=== PATIENT | male | born 1935 | race Caucasian/White ===

== ENCOUNTER → 2017-09-04 | Outpatient (CLI) | payer OTHER ==
[~2017-09-04] MED LIST: ACETAMINOPHEN325 M1 PO; ASPIR 8181 MG PO; ATORVASTATIN CA40 MG PO; B COMPLEX-VITA1 EACH PO; BISACODYL SUPP10 MG RECTAL; CALCITONIN SALMON NASAL; CALCITONIN SPRAY; CALCIUM 500 +1 EAC5 PO; CALCIUM CARBON500 M3 PO; CALTRATE 600 +1 EACH PO; CALTRATE-600 W1 EACH PO; CELEXA 20 MG TA20 M1 PO; CELEXA20 MG PO; COLACE100 MG PO; FEOSOL BIFERA 228 MG PO; FISH OIL 1,0001 EAC5 PO; FLEXERIL PO; FLOMAX0.4 MG PO; FOSAMAX 70 MG T70 M1 PO; GLUCOSAMINE CH PO; LISINOPRIL10 MG PO; LISINOPRIL20 MG PO; LUPRON DEPOT IM; LUPRON DEPOT11.25 MG IM; LUPRON DEPOT22.5 MG IM; LUPRON DEPOT45 MG SUBQ; MAG GLYCINATE100 MG PO; MAGNESIUM OXID400 MG PO; MAGNESIUM100 MG PO; MAGOX 400400 MG PO; MAXARON FORTE1 EACH PO; MECLIZINE HCL12.5 MG PO; MILK OF MA2400 MG/10 PO; MIRALAX17 GM PO; MULTIVITAMINS1 EAC7 PO; NAMENDA 5 MG TAB5 M1 PO; NORCO 5-325 TA1 EACH PO; NORVASC10 MG PO; NYSTATIN 1100000 U/M SW&SWALLOW; PEG3350510 GM PO; PERCOCET 7.5-31 EACH PO; PERCOCET PO; PRINIVIL20 MG PO; TAMSULOSIN HCL0.4 M1 PO; TAMSULOSIN HCL0.4 MG PO; TOPROL XL25 MG PO; ULTRAM 50MG TAB50 MG PO; VISTARIL 25 MG25 M1 PO; VITAMIN B-1100 M1 PO; VITAMIN B-12500 MCG PO
== END ==
LOC: ULTRA 11:32
DX: G45.9 Transient cerebral ischemic attack, unspecified (principal); H53.8 Other visual disturbances

== ENCOUNTER → 2017-09-16 | Outpatient (CLI) | payer OTHER | LOC: CAT 09:58 | DX: G31.9 Degenerative disease of nervous system, unspecified (principal); M41.82 Other forms of scoliosis, cervical region; M47.892 Other spondylosis, cervical region; H51.9 Unspecified disorder of binocular movement; R42 Dizziness and giddiness ==

== ENCOUNTER → 2018-05-12 | Outpatient (CLI) | payer OTHER | LOC: NUC 06:34 | DX: Z13.820 Encounter for screening for osteoporosis (principal); M81.0 Age-related osteoporosis without current pathological fracture ==

== ENCOUNTER → 2018-11-03 | Outpatient (CLI) | payer OTHER | LOC: RAD 11:41 | DX: J84.10 Pulmonary fibrosis, unspecified (principal) ==

== ENCOUNTER → 2019-05-06 | Outpatient (CLI) | payer OTHER | LOC: ULTRA 09:13 | DX: N28.1 Cyst of kidney, acquired (principal); R14.0 Abdominal distension (gaseous); R63.4 Abnormal weight loss ==

== ENCOUNTER → 2020-06-08 | Outpatient (CLI) | payer OTHER | LOC: SJCVC 10:47 | PROVIDERS: ATTEND Internal Medicine Cardiovascular Disease | DX: I45.10 Unspecified right bundle-branch block (principal); R94.31 Abnormal electrocardiogram [ECG] [EKG]; I25.10 Atherosclerotic heart disease of native coronary artery without angina pectoris; I13.0 Hypertensive heart and chronic kidney disease with heart failure and stage 1 through stage 4 chronic kidney disease, or unspecified chronic kidney disease; N18.9 Chronic kidney disease, unspecified; I50.9 Heart failure, unspecified; R60.9 Edema, unspecified; M19.90 Unspecified osteoarthritis, unspecified site; E78.00 Pure hypercholesterolemia, unspecified; Z82.49 Family history of ischemic heart disease and other diseases of the circulatory system; Z79.899 Other long term (current) drug therapy ==

== ENCOUNTER → 2020-10-04 | Outpatient (CLI) | payer OTHER | LOC: SJCVCIMAG 09:28 | PROVIDERS: ATTEND Internal Medicine Cardiovascular Disease | DX: I08.3 Combined rheumatic disorders of mitral, aortic and tricuspid valves (principal); R94.31 Abnormal electrocardiogram [ECG] [EKG]; I25.10 Atherosclerotic heart disease of native coronary artery without angina pectoris; I13.0 Hypertensive heart and chronic kidney disease with heart failure and stage 1 through stage 4 chronic kidney disease, or unspecified chronic kidney disease; I50.9 Heart failure, unspecified; N18.30 Chronic kidney disease, stage 3 unspecified; Z79.899 Other long term (current) drug therapy ==

== ENCOUNTER 2020-11-16 11:52 | Emergency (ER) | payer OTHER ==
[~2020-11-16] VITALS: Ht 165.1 cm; Wt 79.4 kg
[2020-11-16 13:38] LABS: URINE BILIRUBIN NEGATIVE (Negative); URINE BLOOD NEGATIVE (Negative); URINE CLARITY CLEAR; URINE COLOR YELLOW; URINE GLUCOSE-RANDOM* NEGATIVE (Negative); URINE KETONES TRACE (Negative); URINE LEUKOCYTES-REFLEX NEGATIVE (Negative); URINE NITRITE-REFLEX NEGATIVE (Negative); URINE PROTEIN (DIPSTICK) NEGATIVE (Negative); URINE UROBILINOGEN 0.2 E.U./dl (0.2-1.0)
[2020-11-16 13:43] LABS: ABSOLUTE NEUTROPHILS 3.7 thou/uL (1.4-8.2); BASOPHILS 0.4 % (0.0-2.0); EOSINOPHILS 0.4 % (0.0-3.0); HEMATOCRIT 39.4 % (42.0-52.0); HEMOGLOBIN 13.1 gm/dL (14.0-18.0); LYMPHOCYTES 18.8 % (24.0-44.0); MCH 32.7 pg (26.0-34.0); MCHC 33.2 g/dL (28.0-37.0); MCV 98.4 fL (80.0-100.0); MONOCYTES 7.4 % (1.0-8.0); PLATELET COUNT 147 thou/uL (150-400); RDW 13.6 % (10.5-14.5); WBC 5.1 thou/uL (4.0-11.0)
[2020-11-16 14:09] LABS: ALBUMIN 3.8 g/dL (3.4-5.0); CREATININE 1.6 mg/dL (0.7-1.3); POTASSIUM 4.4 mmol/L (3.5-5.1); TOTAL BILIRUBIN 0.6 mg/dL (0.2-1.0); TOTAL PROTEIN 6.6 g/dL (6.4-8.2)
[2020-11-16 14:11] LABS: CALCIUM 10.1 mg/dL (8.5-10.1)
--- NOTE | 2020-11-16 14:23 | EKG ---
[place] [address] [address] [facility] [place] [address] ELECTROCARDIOGRAM REPORT Name: KEVIN RAMIREZ [facility] [id number] Admission: 11/16/20 Attend Phys: Discharge: Date of : 31 Report #: [id number] [facility] ED Test Date: 2020-11-16 Test Time: 13:10:52 Pat Name: KEVIN RAMIREZ Department: Room: Gender: M Heating Unit Installer: christos : 1935 Requested By: Danny Santos Order Number: [id number] MD: Emeka Harrison Measurements Intervals [place] Rate: 55 P: 23 ID: 174 QRS: 73 QRSD: 111 T: 26 QT: 432 QTc: 414 Interpretive Statements NSR RSR' in V1 or V2, right VCD or RVH Compared to ECG 01/10/2017 09:55:50 Right ventricular hypertrophy now present RSR' in V1 or V2 now present Electronically Signed On 11-16-2020 14:23:47 CARE INFORMATION ASSOCIATE by Emeka Harrison [email or web address] <ELECTRONICALLY SIGNED> By: Emeka Harrison MD, [facility] 11/16/20 1423 1310 1310 Emeka Harrison MD, FACC /EPI
[2020-11-16] MEDS ORDERED: ZOFRAN ODT4 MG PO (14:25)
[2020-11-16] MEDS ORDERED: ZESTRIL5 MG PO (15:24)
[2020-11-16 15:26] VITALS: BP 164/77
== END 2020-11-16 15:27 ==
LOC: ER 11:52
PROVIDERS: Emergency Medicine
DX: R11.2 Nausea with vomiting, unspecified (principal); R42 Dizziness and giddiness; Z86.2 Personal history of diseases of the blood and blood-forming organs and certain disorders involving the immune mechanism; Z79.899 Other long term (current) drug therapy; Z79.82 Long term (current) use of aspirin; Z88.8 Allergy status to other drugs, medicaments and biological substances; Z91.048 Other nonmedicinal substance allergy status

== ENCOUNTER → 2021-01-18 | Outpatient (CLI) | payer OTHER ==
[~2021-01-18] MED LIST changes: +ZESTRIL5 MG PO; +ZOFRAN ODT4 MG PO
== END ==
LOC: HYPER 13:10
PROVIDERS: ATTEND Emergency Medicine
DX: L89.152 Pressure ulcer of sacral region, stage 2 (principal); R21 Rash and other nonspecific skin eruption; L30.9 Dermatitis, unspecified; R26.89 Other abnormalities of gait and mobility; R53.1 Weakness; H91.93 Unspecified hearing loss, bilateral; G30.1 Alzheimer's disease with late onset; I13.0 Hypertensive heart and chronic kidney disease with heart failure and stage 1 through stage 4 chronic kidney disease, or unspecified chronic kidney disease; I50.9 Heart failure, unspecified; N18.9 Chronic kidney disease, unspecified; I25.10 Atherosclerotic heart disease of native coronary artery without angina pectoris; E78.00 Pure hypercholesterolemia, unspecified; M19.90 Unspecified osteoarthritis, unspecified site; M48.00 Spinal stenosis, site unspecified; F41.9 Anxiety disorder, unspecified; F02.80 Dementia in other diseases classified elsewhere, unspecified severity, without behavioral disturbance, psychotic disturbance, mood disturbance, and anxiety; F32.9 Major depressive disorder, single episode, unspecified; Z85.46 Personal history of malignant neoplasm of prostate; Z96.659 Presence of unspecified artificial knee joint; Z98.41 Cataract extraction status, right eye

== ENCOUNTER 2021-07-30 19:26 | Observation (INO) | payer OTHER ==
[~2021-07-30] VITALS: Ht 152.4 cm; Wt 76.2 kg
[2021-07-30 19:38] VITALS: BP 178/70
[2021-07-30 20:24] LABS: ABSOLUTE NEUTROPHILS 6.4 thou/uL (1.4-8.2); BASOPHILS 0.3 % (0.0-2.0); EOSINOPHILS 0.2 % (0.0-3.0); HEMATOCRIT 35.4 % (42.0-52.0); HEMOGLOBIN 11.8 gm/dL (14.0-18.0); LYMPHOCYTES 5.2 % (24.0-44.0); MCH 32.7 pg (26.0-34.0); MCHC 33.5 g/dL (28.0-37.0); MCV 97.8 fL (80.0-100.0); MONOCYTES 3.2 % (1.0-8.0); PLATELET COUNT 119 thou/uL (150-400); POLYS 91.1 % (36.0-66.0); RBC 3.62 mil/uL (4.50-6.00); RDW 13.3 % (10.5-14.5)
[2021-07-30 20:44] LABS: CALCIUM 9.2 mg/dL (8.5-10.1); CREATININE 1.4 mg/dL (0.7-1.3); POTASSIUM 4.5 mmol/L (3.5-5.1)
[2021-07-30 20:48] LABS: ALBUMIN 3.5 g/dL (3.4-5.0); TOTAL BILIRUBIN 0.4 mg/dL (0.2-1.0); TOTAL PROTEIN 6.3 g/dL (6.4-8.2)
[2021-07-30 20:55] LABS: URINE BILIRUBIN NEGATIVE (Negative); URINE BLOOD NEGATIVE (Negative); URINE CLARITY CLEAR; URINE COLOR YELLOW; URINE GLUCOSE-RANDOM* NEGATIVE (Negative); URINE KETONES TRACE (Negative); URINE LEUKOCYTES-REFLEX NEGATIVE (Negative); URINE NITRITE-REFLEX NEGATIVE (Negative); URINE PROTEIN (DIPSTICK) NEGATIVE (Negative); URINE SPECIFIC GRAVITY 1.015 (1.005-1.035); URINE UROBILINOGEN 0.2 E.U./dl (0.2-1.0)
[2021-07-31] VITALS (8 sets, daily range): BP systolic 117–165; BP diastolic 48–99
[2021-07-31 03:32] LABS: HEMATOCRIT 34.7 % (42.0-52.0); HEMOGLOBIN 11.7 gm/dL (14.0-18.0); MCH 32.9 pg (26.0-34.0); MCHC 33.7 g/dL (28.0-37.0); MCV 97.5 fL (80.0-100.0); RBC 3.55 mil/uL (4.50-6.00); RDW 13.4 % (10.5-14.5); WBC 7.7 thou/uL (4.0-11.0)
[2021-07-31 03:40] LABS: CALCIUM 8.6 mg/dL (8.5-10.1); CREATININE 1.4 mg/dL (0.7-1.3); POTASSIUM 4.5 mmol/L (3.5-5.1)
--- NOTE | 2021-07-31 06:23 | NUR ---
PATIENTS CARE WAS ASSUMED AFTER A TRANSFER [facility] ED. PATIENT WAS ASSESSED AND MEDS WERE PASSES. PATIENT IS A VERY ANXIOUS MAN WHEN HE HAS TO BATHROOM HE JUMPS OUT OF BED. MUST REINFORCE HIM TO CALL STAFF TO GET UP. PATIENT NEED TO BE CLOSER TO THE NURSING STATION. ROUNDS WERE MADE. THE BED ALARM SET ON SENSATIVE. PATIENT ALSO APPERS TO HAVE TAKEN A LAXATIVE DUE TO THE AMOUNT AND CONSISTANCE OF HIS STOOLS. THE BED IS IN A LOW AND LOCKED POSITION
--- NOTE | 2021-07-31 07:23 | EKG ---
[place] [address] [facility] [place] [address] ELECTROCARDIOGRAM REPORT Name: KEVIN RAMIREZ Room #: 206-P ADM IN M.R.#: [id number] Admission: 07/31/21 Attend Phys: Ephraim Paula Discharge: Date of : 31 Report #: [id number] [facility] ED Test Date: 2021-07-30 Test Time: 19:55:04 Pat Name: KEVIN RAMIREZ Department: Room: 206 Gender: M Table Assembler: malachi coyle : 1935 Requested By: Ilda Catherine Order Number: [id number] MD: Emeka Harrison Measurements Intervals [place] Rate: 62 P: 22 [place]: 177 QRS: 67 QRSD: 114 T: 15 QT: 609 QTc: 619 Interpretive Statements Sinus rhythm Supraventricular bigeminy Prolonged QT interval Compared to ECG 11/16/2020 13:10:52 Atrial premature complex(es) now present Prolonged QT interval now present Right ventricular hypertrophy no longer present Electronically Signed On 07-31-2021 7:23:36 CDT by Emeka Harrison [email or web address] <ELECTRONICALLY SIGNED> By: Emeka Harrison MD, [facility] 07/31/21 0723 54 54 Emeka Harrison MD, [facility] /EPI
--- NOTE | 2021-07-31 17:43 | NUR ---
Met with patient who has hx of dementia and [place]. at bedside. reports live at [facility] in independent apt. reports she administer medications. Patient uses a walker for ambulation. she reports uses walker in apt but has cane at hospital. assists with adls. She reports patient with shower chair and hand held shower head that assist with bathing. They have breakfast in dining area of [facility]. They has meals on wheels. reports patient has therapy which is in their building. She reports they go to [facility] and rec physical therapy. reports 3-4x a week. Discussed home health care and does not feel they need. She reports she prefers to leave [facility] and have their therapy at [facility]. PCP Dr Kumar. Casemgt following.
--- NOTE | 2021-07-31 18:50 | NUR ---
PT ALERT TO SELF ONLY. VSS, IVF INFUSING PER ORDER. PT DENIES PAIN/SOA. PT TOLEARTES MEDS AND MEALS. PT UP TO BSC WITH ASSIST OF ONE. PT AT BEDSIDE THIS SHIFT. WILL CONTINUE TO MONITOR.
--- NOTE | 2021-08-01 01:22 | NUR ---
ASSUMED CARE OF PT AT 1900, PT WAS A/O X 4 AT THE BEGINNING OF THE SHIFT, AND BECAME LESS ORIENTED THE SHIFT WENT ON. ASSESSMENT COMPLETED NOTED, PT IS IMPULSIVE WHEN HE NEEDS TO URINATE, WILL ATTEMPT TO STAND UP TO USE URINAL. PT IS FORGETFUL WHEN USING THE CALL LIGHT. WILL CONTINUE TO WORK TOWARDS PT'S POC.
[2021-08-01 04:39] LABS: CALCIUM 8.7 mg/dL (8.5-10.1); CREATININE 1.5 mg/dL (0.7-1.3); POTASSIUM 3.9 mmol/L (3.5-5.1)
[2021-08-01 04:40] VITALS: BP 132/71
[2021-08-01 05:08] LABS: HEMATOCRIT 30.8 % (42.0-52.0); HEMOGLOBIN 10.8 gm/dL (14.0-18.0); MCH 34.1 pg (26.0-34.0); MCV 97.6 fL (80.0-100.0); RBC 3.15 mil/uL (4.50-6.00); RDW 13.7 % (10.5-14.5); WBC 5.4 thou/uL (4.0-11.0)
[2021-08-01 07:51] VITALS: BP 140/69
[2021-08-01 11:17] VITALS: BP 135/70
--- NOTE | 2021-08-01 13:09 | 2DMMODE ---
[facility] [place] [address] 2 D/M-MODE ECHOCARDIOGRAM Name: KEVIN RAMIREZ Room #: 206-P ADM IN M.R.#: [id number] Admission: 07/31/21 Attend Phys: Otis Monroe MD Discharge: Date of : 31 Report #: [id number] THIS REPORT FOR: cc: Won Guerin,Rahul Carballo MD ~ APPROVED REPORT Study performed: 08/01/2021 12:00:16 EXAM: Comprehensive 2D, Doppler, and color-flow Echocardiogram Patient Location: In-Patient Room #: [facility] Status: routine BSA: 1.87 BP: 140/69 mmHg Rhythm: Bradycardia Other Information Study Quality: Good Indications Bradycardia 2D Dimensions IVSd: 16.06 (7-11mm) LVOT Diam: 25.49 (18-24mm) LVDd: 40.98 mm PWd: 15.56 (7-11mm) LVDs: 30.36 (25-40mm) Left Atrium: 34.59 (27-40mm) Aortic Root: 33.78 mm LV Single Plane 4CH: 49.14 % LV Single Plane 2CH: 66.61 % Volumes Left Atrial Volume (Systole) Single Plane 4CH: 30.52 mL Single Plane 2CH: 24.61 mL Biplane LA Volume: 34.00 mL LA ESV Index: 18.00 mL/m2 Aortic Valve AoV Peak Mekhi.: 1.15 m/s AO Peak Gr.: 5.33 mmHg LVOT Max P.62 mmHg LVOT Max V: 0.81 m/s [facility] [place] [address] 2 D/M-MODE ECHOCARDIOGRAM Name: KEVIN RAMIREZ Room #: 206-P [facility] IN ..#: [id number] Admission: 07/31/21 Attend Phys: Otis Monroe MD Discharge: Date of : 33 Report #: [id number] Vmax: 3.57 cm2 Mitral Valve E/A Ratio: 1.4 MV Decel. Time: 1231.11 ms MV E Max Mekhi.: 0.54 m/s MV A Mekhi.: 0.40 m/s MV PHT: 357.02 ms IVRT: 55.36 ms Pulmonary Valve PV Peak Mekhi.: 0.86 m/s PV Peak Gr.: 2.97 mmHg Pulmonary Vein P Vein S: 0.40 m/s P Vein A: 0.30 m/s P Vein D: 0.53 m/s P Vein A Dur.: 78.4 msec P Vein S/D Ratio: 0.75 Tricuspid Valve TR Peak Mekhi.: 2.67 m/s TR Peak Gr.: 28.43 mmHg RVSP: 35.00 mmHg Left Ventricle The left ventricle is normal size. There is normal LV segmental wall motion. There is normal left ventricular wall thickness. Left ventricular systolic function is normal. The left ventricular ejection fraction is within the normal range. LVEF is 60-65%. Right Ventricle The right ventricle is normal size. The right ventricular systolic function is normal. Atria The left atrium size is normal. The right atrium size is normal. Aortic Valve Aortic valve is trileaflet. Trace aortic regurgitation. There is no aortic valvular stenosis. Mitral Valve The mitral valve is normal in structure. Mild mitral regurgitation. No evidence of mitral valve stenosis. Tricuspid Valve The tricuspid valve is normal in structure. Mild tricuspid [facility] [address] [place] [address] 2 D/M-MODE ECHOCARDIOGRAM Name: KEVIN RAMIREZ Room #: 206-P ADM IN M.R.#: [id number] Admission: 07/31/21 Attend Phys: Otis Monroe MD Discharge: Date of : 33 Report #: [id number] regurgitation. PAP 32 mmHg Pulmonic Valve The pulmonary valve is normal in structure. Trace pulmonic regurgitation. Great Vessels The aortic root is normal in size. IVC is normal in size and collapses >50% with inspiration. Pericardium There is no pericardial effusion. There is no pleural effusion. <Conclusion> The left ventricle is normal size. There is normal left ventricular wall thickness. Left ventricular systolic function is normal. The right ventricle is normal size. The left atrium size is normal. Aortic valve is trileaflet. Mild mitral regurgitation. Mild tricuspid regurgitation. <ELECTRONICALLY SIGNED> By: Rahul Cotter MD 08/01/21 1308 1308 1308 Rahul Cotter MD /INF
[2021-08-01] MEDS ORDERED: LEVOFLOXACIN250 MG PO (14:49)
[2021-08-01] MEDS ORDERED: FLAGYL500 M1 PO (14:49)
[2021-08-01 14:59] VITALS: BP 135/70
--- NOTE | 2021-08-01 16:28 | NUR ---
PT VERY AGITATED THIS MORNING YELLING SAYING HE WAS SUPPOSED TO DISCHARGE AT 0830 AM. PT TOOK IV OUT AND EKG LEADS OFF. PT REFUSED AM MEDICATIONS. PT AT BEDSIDE WILL CONTINUE TO MONITOR.
== END 2021-08-01 16:00 | disposition home or self-care (01) ==
LOC: ER 19:26 → 2N 07-31 00:37 → EROBS 07-31 00:37 → 2N 07-31 00:37
PROVIDERS: Emergency Medicine; Nurse Practitioner Family; Physician Assistant; ADMIT Hospitalist; ATTEND Hospitalist
DX: K52.9 Noninfective gastroenteritis and colitis, unspecified (principal); E87.2 Acidosis; Z20.822 Contact with and (suspected) exposure to COVID-19; R41.82 Altered mental status, unspecified; R53.1 Weakness; F03.90 Unspecified dementia, unspecified severity, without behavioral disturbance, psychotic disturbance, mood disturbance, and anxiety; D64.9 Anemia, unspecified; Z91.048 Other nonmedicinal substance allergy status; Z88.8 Allergy status to other drugs, medicaments and biological substances; Z79.82 Long term (current) use of aspirin; Z79.899 Other long term (current) drug therapy; Z98.890 Other specified postprocedural states
CPT/HCPCS: 10081

== ENCOUNTER 2021-08-07 15:04 | Inpatient (IN) | payer OTHER ==
[~2021-08-07] VITALS: Ht 172.7 cm; Wt 70.0 kg
[2021-08-07 15:04] VITALS: BP 168/70
[~2021-08-07 15:04] MED LIST changes: +FLAGYL500 M1 PO; +LEVOFLOXACIN250 MG PO
[2021-08-07 15:33] LABS: ABSOLUTE NEUTROPHILS 2.3 thou/uL (1.4-8.2); BASOPHILS 0.7 % (0.0-2.0); EOSINOPHILS 0.1 % (0.0-3.0); HEMATOCRIT 34.6 % (42.0-52.0); HEMOGLOBIN 11.9 gm/dL (14.0-18.0); LYMPHOCYTES 17.7 % (24.0-44.0); MCH 32.8 pg (26.0-34.0); MCHC 34.3 g/dL (28.0-37.0); MCV 95.7 fL (80.0-100.0); MONOCYTES 10.9 % (1.0-8.0); PLATELET COUNT 88 thou/uL (150-400); POLYS 70.6 % (36.0-66.0); RBC 3.62 mil/uL (4.50-6.00); RDW 13.4 % (10.5-14.5); WBC 3.3 thou/uL (4.0-11.0)
[2021-08-07 15:46] LABS: CALCIUM 8.3 mg/dL (8.5-10.1); CREATININE 1.5 mg/dL (0.7-1.3); POTASSIUM 3.8 mmol/L (3.5-5.1)
[2021-08-07 15:52] LABS: ALBUMIN 2.9 g/dL (3.4-5.0); DIRECT BILIRUBIN 0.2 mg/dL (<0.1-0.2); MAGNESIUM 1.8 mg/dL (1.8-2.4); TOTAL BILIRUBIN 0.5 mg/dL (0.2-1.0)
[2021-08-07 17:50] LABS: URINE BILIRUBIN NEGATIVE (Negative); URINE BLOOD 2+ (Negative); URINE CLARITY CLEAR; URINE COLOR YELLOW; URINE GLUCOSE-RANDOM* NEGATIVE (Negative); URINE KETONES 1+ (Negative); URINE LEUKOCYTES-REFLEX NEGATIVE (Negative); URINE NITRITE-REFLEX NEGATIVE (Negative); URINE PROTEIN (DIPSTICK) 2+ (Negative); URINE UROBILINOGEN 0.2 E.U./dl (0.2-1.0)
[2021-08-07 18:02] LABS: CASTS None Seen /LPF (None Seen); SQUAMOUS 0-3 Few /LPF (0-3); URINE RBC 3-10 Few /HPF (NONE SEEN); URINE WBC-REFLEX 0-5 Rare /HPF (0-5)
[2021-08-07 18:03] LABS: BACTERIA-REFLEX 1-9 Few /HPF (None Seen); CRYSTALS None Seen /LPF (None Seen)
--- NOTE | 2021-08-07 19:13 | NUR ---
REPORT GIVEN TO MAKENNA LEMOS AT THIS TIME
--- NOTE | 2021-08-07 22:51 | NUR ---
NOTIFIED PT'S REGARDING PATIENT COVID TEST POSITIVE.
[2021-08-08 06:22] LABS: HEMATOCRIT 33.6 % (42.0-52.0); HEMOGLOBIN 11.2 gm/dL (14.0-18.0); MCH 32.3 pg (26.0-34.0); MCHC 33.4 g/dL (28.0-37.0); MCV 96.5 fL (80.0-100.0); RBC 3.48 mil/uL (4.50-6.00); RDW 13.7 % (10.5-14.5); WBC 2.6 thou/uL (4.0-11.0)
[2021-08-08 06:36] LABS: CREATININE 1.4 mg/dL (0.7-1.3); POTASSIUM 3.7 mmol/L (3.5-5.1)
[2021-08-08 06:58] VITALS: BP 175/72
--- NOTE | 2021-08-08 08:26 | EKG ---
[place] [address] [address] [employer] [place] [address] ELECTROCARDIOGRAM REPORT Name: KEVIN RAMIREZ Room #: 170-9 ADM IN M.R.#: [id number] Admission: 08/07/21 Attend Phys: Rachel Meng MD Discharge: Date of : 31 Report #: [id number] [facility] ED Test Date: 2021-08-07 Test Time: 15:13:40 Pat Name: KEVIN RAMIREZ Department: Room: 170 9 Gender: M Casting Associate: MAYITO : 1935 Requested By: Laura Kumar Order Number: [id number] MD: Nick Phillips Measurements Intervals [place] Rate: 60 P: 28 [place]: 163 QRS: 74 QRSD: 118 T: 56 QT: 408 QTc: 408 Interpretive Statements Sinus rhythm Incomplete right bundle branch block Compared to ECG 07/30/2021 19:55:04 Atrial premature complex(es) no longer present Prolonged QT interval no longer present Electronically Signed On 08-08-2021 8:26:25 CDT by Nick Phillips [email or web address] <ELECTRONICALLY SIGNED> By: Nick Phillips MD, [facility] 08/08/21 0826 1513 151 Nick Phillips MD, [facility] /EPI
[2021-08-08 10:53] VITALS: BP 182/86
[2021-08-08 11:10] VITALS: BP 160/93
[2021-08-08 15:01] VITALS: BP 155/65
--- NOTE | 2021-08-08 17:40 | NUR ---
PT IS ALERT TO SELF ONLY. PT IS STABLE ON RA. PT IS NOT HAPPY AND DOES NOT WANT TO BE TOUCHED OR ANSWER QUESTIONS. SPOKE WITH REGARDING HISTORY AND ADMISSION QUESTIONS. PT HAS RED COCCYX. SKIN IS DRY AND INTACT. PT IS REFUSING TO TAKE MEDICATIONS. PER , PT WAS REFUSING MEDICATIONS AT HOME. CALL LIGHT WITHIN REACH. INSTRUCTED PT TO CALL IF HE NEEDS ANYTHING.
[2021-08-08 20:20] VITALS: BP 175/70
--- NOTE | 2021-08-09 03:55 | NUR ---
Pt. took BP med at then refused the other med. He is very hard of hearing , confused and very hard to redirect. He hollers and curses when being cleaned for incontinence. Incontinent of bladder and had bm x2 this shift. Tolerating room air well with occasional cough. Refused vital signs to be taken at [place] , very resistive to care. Slept some in between repositioning.
[2021-08-09 04:30] VITALS: BP 173/83
[2021-08-09 07:44] VITALS: BP 173/69
--- NOTE | 2021-08-09 10:55 | NUR ---
Nutrition: pt admitted with confusion, inability to perform daily activities, COVID +. Seen due to high risk screen for poor intake/weight loss (2-13#). pt with hx dementia, [place], CKD3. A/O to self. Attempted phone call to -no answer. Lives with at . apartment. Per chart review po has been poor only past 2 days-related to current illness. On IVFs. [employer] weight hx shows current weight up 4# from 9 days ago. Pt reported weight of 175# in 2020 and current is 165#. Did eat breakfast today per RN. 08/09 BM. Will offer ensure daily and follow po trends. Low risk.
[2021-08-09 12:55] VITALS: BP 147/85
[2021-08-09 16:09] VITALS: BP 168/69
--- NOTE | 2021-08-09 16:30 | NUR ---
INITIAL ASSESSMENT: Received consult. SW reviewed chart and spoke with nursing and attending physician. Pt was admitted from home due to weakness/debility. Pt did have positive COVID test. Pt has received the Moderna COVID vaccine. Pt is afebrile and not requiring O2. Pt is on IV steroids. PT/OT evals ordered today. Pt with hx of dementia and is [place]. YUVAL spoke with pt's via phone. Introduced role of SW. Pt was recently discharged home from [facility] on 08/01. Pt's states they have had family members who have tested positive for COVID. Pt's has not yet been tested but is in quarantine. SW discussed discharge plans. Plan is for pt to discharge home with possible HH if needed. Pt and spouse live in the [facility] at [facility]. Pt's PCP is Dr. Guerin. SW is following to assist as needed with discharge planning.
[2021-08-09 16:46] VITALS: BP 162/80
[2021-08-09 19:52] VITALS: BP 151/63
--- NOTE | 2021-08-09 23:56 | NUR ---
PT CONFUSED, IRRITABLE. NONCOOPERATIVE. YELLS AT NURSE TO TAKE HER MASK OFF. TOOK MEDS WITH MUCH COAXING. INC OF URINE LG AMTS ON BED. VOIDED SMALL AMTS IN URINAL. PT VERY DEMANDING WITH CARES. BED DOWN CALL LIGHT IN REACH. BED ALARM IS ON. PT HAD BM ON CHAIR IN ROOM. NO S/S DISTRESS PRESENTLY ON RA.
[2021-08-10 05:33] VITALS: BP 178/62
--- NOTE | 2021-08-10 06:48 | NUR ---
PT CONTINUES TO BE IRRITABLE WITH STAFF. PT IS VERY CONFUSED. HE DID TAKE HIS BP MEDS THIS AM AFTER EXPLAINING HIS BP IS ELEVAED. BED CHANGEDPT INC OF URINE IN LG AMTS.
[2021-08-10 08:06] VITALS: BP 182/56
[2021-08-10 09:53] VITALS: BP 136/85
--- NOTE | 2021-08-10 13:39 | NUR ---
YUVAL reviewed chart and spoke with nursing and attending physician. Pt remains in Enhanced Isolation due to COVID. Pt is afebrile and not requiring O2. Pt is on IV steroids. Pt with advanced dementia. Attending physician spoke with pt's regarding goals of care. Pt's code status changed to DNR. Pt's interested in taking pt home with hospice services. SW spoke with pt's via phone. Pt's states that she wants pt to be at home because he gets agitated and confused when she is not with him. SW discussed hospice service and provided options of hospice agencies. Pt's verbalized understanding and does not have a preference of hospice provide. Pt's is very overwhelmed and asks that pt be discharged home over the weekend, to allow time to get their apt arranged. YUVAL explained process of having a hospice eval and if DME is needed, they will deliver the DME to their apt prior to discharge. Transportation will be coordinated once all is in place. Will need and outside the hospital DNR form signed by physician. YUVAL faxed hospice referral and DPOA ppwk to [facility]. SW notified hospice coordinator of new referral. Hospice to contact pt's to discuss hospice and arrange for DME to be delivered. Weekend discharge planned. YUVAL updated pt's nurse and attending physician. Final discharge ppwk will need to be faxed to hospice when available. YUVAL is following to assist as needed with discharge planning. [facility]--
[2021-08-10 15:55] VITALS: BP 100/53
--- NOTE | 2021-08-10 19:31 | NUR ---
RN ASSUMED PT'S CARE AT 0700-1900PM, PT KNOWS HIS NAME , BUT PT IS CONFUSED AND IMPULSIVE AT TIME, PT IS HIGH FALL RISK, PT IS ON ROOM AIR, PT DOES NOT HAVE SOB AT DAY SHIFT. RN HAS REPORTED TO NEXT SHIFT TO KEEP EYES ON PT.
[2021-08-10 20:35] VITALS: BP 167/69
--- NOTE | 2021-08-11 00:36 | NUR ---
PT PROGRESING TOWARDS D/C GOALS. VSS AFEBRILE UNLABORED ON RA. PT MILDLY IRRITABLE TONIGHT. BED DOWN. CALL LIGHTIN REACH. SLEEPING PRESENTLY.NO S/S DISTRESS.
[2021-08-11 04:07] VITALS: BP 146/81
--- NOTE | 2021-08-11 06:15 | NUR ---
PT PROGRESING SLOWLY TOWARDS D/C GOALS. VSS. PT TOOK BP MEDS AFTER MUCH ENCOURAGEMENT THIS AM.
[2021-08-11 07:37] VITALS: BP 145/73
--- NOTE | 2021-08-11 12:29 | NUR ---
SPOKE WITH THE [facility] TRANSMITTER TESTER AND SHE IS ARRANGING FOR A NURSE TO EVAL PT AT THE BEDSIDE AND WILL COORDINATE DC IF PT MEETS REQUIREMENTS AND INSURANCE IS IN NETWORK. THEY WILL F/U WITH DC CHARGE OUT CLERK AFTER EVAL. i, NOTIFIED PT'S NURSE THAT PT WILL NEED OUTSIDE DNR SIGNED AND ORDERS FAXED IF AFTER 1400 TODAY.
[2021-08-11] MEDS ORDERED: MORPHINE S20 MG/5 ML PO (13:02)
[2021-08-11] MEDS ORDERED: HALDOL5 MG/1 ML SUBLING (13:02)
[2021-08-11] MEDS ORDERED: LORAZEPAM I2 MG/1 ML PO (13:02)
[2021-08-11 15:26] VITALS: BP 145/67
--- NOTE | 2021-08-11 19:30 | NUR ---
RN ASSUMED PT'S CARE AT 0700-1900PM, PT IS CONFUSED , AND PT IS IMPULSIVE AT TIME, PT IS HIGH FALL RISK, PT STILL REFUSED MEDICATIONS AND EAT AT MOST OF TIME, PT IS ON ROOM AIR , PT'S VS AND O2SAT ARE STABLE, RN HAS UPDATED PT'S INFORMATION TO PT'S FAMILY, PT STARTS COMFORT CARE 1600PM PER ORDER.
[2021-08-11 20:43] VITALS: BP 165/83
[2021-08-12 04:37] VITALS: BP 176/67
--- NOTE | 2021-08-12 05:51 | NUR ---
Pt. has been repositioned for comfort. Slept most of the night except for getting him cleaned for incontinence. O2 sat 0f 90% in RA at beginning of shift then this am 86%. Refused oxygen and stated I don't want that in my nose my breathing is fine. Got agitated when attempted to explain and verbalized he just wants to be left alone.
[2021-08-12 07:58] VITALS: BP 174/71
--- NOTE | 2021-08-12 16:56 | NUR ---
RN ASSUMED PT'S CARE AT 0700AM, PT IS CONFUSED, PT CAN FOLLOW SOME COMMANDS, PT IS IMPULSIVE AT TIME, PT IS HIGH FALL RISK, PT STILL IS POOR EATING AT MEAL TIME, EVEN WE FEED PT, HE STILL IS REFUSED TO EAT AND DRINK, PT HAS STARTED COMFORT CARE AT 08/11/21, PT'S ORAL CARE AND SKIN CARE HAVE DONE, PT IS COMFORTABLE NOW.
[2021-08-12 20:49] VITALS: BP 191/95
[2021-08-12 22:50] VITALS: BP 154/73
[2021-08-13] VITALS: BP 156/68
--- NOTE | 2021-08-13 01:47 | NUR ---
ASSUMED PT CARE AT START OF SHIFT WAS SLEEPING DURING ASSESSMENTS. PT AWAKE LATER ON RESTLESS AND YELLING OUT. LORAZEPAM AND MORPHINE GIVEN. HYDRALAZINE ONE TIME GIVEN FOR HIGH BP PER DR ORDERS. PT ON 3L OF O2 AT NIGHT TIME. SATS 90%. WILL CONT TO MONITOR.
[2021-08-13 08:02] VITALS: BP 122/83
--- NOTE | 2021-08-13 14:07 | NUR ---
YUVAL reviewed chart and spoke with nursing and attending physician. Pt remains in Enhanced Isolation due to COVID. Pt is afebrile and on 3L of O2. Pt is on comfort care measures. YUVAL discussed case with [facility] healthcare liaison, who states that pt was evaluated on Friday, 08/11. Pt DOES meet admission criteria for hospice. Pt requires more care than pt's and hosp[place] can [place] Pt may need to be admitted to a LTC facility with hospice v. home with 24 hour care. YUVAL spoke with pt's via phone to provide update and discuss discharge plan. Pt's states she has tested positive for COVID and she will be in isolation in their apt. Pt's requests SW contact their dtr, Donna, to discuss discharge plan. YUVAL left voice message for Donna ([phone]) to request call back to discuss discharge plan. [facility] is able to come re-evaluate pt if needed for consideration for GIP hospice if needed. Pt must meet the criteria for GIP hospice admission. YUVAL is following to assist as needed with discharge planning.
[2021-08-13 15:29] VITALS: BP 130/79
--- NOTE | 2021-08-13 19:45 | NUR ---
RN ASSUMED PT'S CARE AT 0700-1900PM, PT IS CONFUSED, PT STILL REFUSED PO MEDICATIONS AND MEALS, PT HAS STARTED COMFORT CARE AT 08/11/21, PT'S ORAL CARE AND SKIN CARE HAVE DONE, PT IS SLEEPING AT MOST OF TIME, PT IS COMFORTABLE .
[2021-08-13 19:53] VITALS: BP 163/99
[2021-08-14 08:05] VITALS: BP 168/76
--- NOTE | 2021-08-14 14:39 | NUR ---
YUVAL reviewed chart and spoke with nursing and attending physician. Pt remains in Enhanced Isolation due to COVID. Pt is afebrile and on 2-3L of O2. Pt remains on comfort care measures. Palliative care consulted today. YUVAL spoke with pt's dtr, Donna, via phone. Pt's dtr and family were not aware that pt had tested positive for COVID and that pt is currently on comfort care measures. Per Donna, pt's has mild Alzheimer's and does not retain and discuss info that has been discussed. Long discussion regarding options for discharge disposition: LTC with hospice, GIP or hospice house setting. Pt's family states that they would prefer for pt to do inpatient hospice, where they will not have to pay privately. YUVAL explained that pt must meet admission criteria for inpt hospice. YUVAL further discussed admission to [facility] LT with hospice services. Pt's dtr asked about pt going for rehab to [facility], and insurance will cover for 100 days. YUVAL explained SNF coverage and that pt's insurance ([facility] Medicare) would have a copay after day 20 if pt qualifies for SNF. Pt's dtr verbalized understanding. Plan also discussed with pt's son-in-law. Family requests to speak to a physician. YUVAL provided Donna's contact info to attending physician. YUVAL and family agreed to have [facility] inspector water pollution control come to re-evaluate pt to determine if his condition has changed since initial eval on Friday, 08/11, then discharge disposition will be discussed. Pt's family agreeable with referral to [facility] for review. YUVAL updated [facility] liaison planner. inspector water pollution control to be onsite around 1415 this afternoon to eval pt. YUVAL updated pt's nurse. YUVAL faxed referral to [facility] for review. YUVAL spoke with Caroline to notify of referral. YUVAL is following to assist as needed with discharge planning.
[2021-08-14 19:49] VITALS: BP 188/77
--- NOTE | 2021-08-15 03:23 | NUR ---
O2 at 2L for comfort. Pt. has been repositioned prn and cleaned for incontinence. Yoseliners when being cared for and just wants to be left alone.
[2021-08-15 08:20] VITALS: BP 150/83
--- NOTE | 2021-08-15 13:44 | NUR ---
YUVAL reviewed chart and spoke with nursing and attending physician. Pt remains in Enhanced Isolation due to COVID. Pt remains on comfort care measures. Attending physician did speak with pt's dtr, Donna, yesterday to provide update. SW spoke with Donna today to discuss plan of care. Pt's dtr states that family is all in agreement with pt remaining on comfort care. SW had thorough discussion with pt's dtr regarding [facility] hospice v. hospice in a nursing facility v. hospice house placement. Pt's dtr requests pt be on [facility] hospice at [facility]. Pt's family would be interested in possible admission to Hospice House after isolation period and if pt is stable for transfer. SW explained that pt would need to be accepted by [facility] and would need to be stable for transfer. Pt's dtr verbalized understanding. Pt's son will be in town on Friday and would like to visit pt if possible. SW discussed doing Face Time/Virtual visit with pt. Family to contact pt's nurse to coordinate. YUVAL spoke with [facility] home care liaison to notify of GIP admission. Tiffany RN to do admission today. YUVAL notified attending physician, pt's nurse and Director of Case Mgmt of new [facility]. Pt will be discharged and then readmitted under [facility] Hospice. YUVAL is following to assist as needed with discharge planning.
[2021-08-15 16:19] VITALS: BP 152/90
[2021-08-15] MEDS ORDERED: MORPHINE SU4 MG/1 M1 IV PUSH (17:44)
[2021-08-15] MEDS ORDERED: LORAZEPAM 22 MG/1 ML IV PUSH (17:44)
[2021-08-15] MEDS ORDERED: ONDANSETRON4 MG/2 M1 IV PUSH (17:45)
[2021-08-15] MEDS ORDERED: Transderm-Scop 1MG/7 TRANSDERM (17:45)
--- NOTE | 2021-08-15 18:31 | NUR ---
RN ASSUMED PT'S CARE AT 0700AM, PT IS ON COMFORT CARE , PT IS CONFUSED , HE REFUSED TO EAT AND HE IS IMPULSIVE AT TIME, RN HAS GIVING MEDICATIONS TO KEEP PT RELAXING , PT'S ORAL CARE AND SKIN CARE HAVE DONE, PT IS COMFORTABLE , PT WAS DC TO ADMIT TO [facility] HOSPICE NOW.
--- NOTE | 2021-08-17 23:16 | NUR ---
PT ASYSTOLE AND NO RESPIRATIONS. NO HEART BEAT HEARD BY AUSCULTATION X TWO NURSES. animal husbandry manager PRIMARY PHYSICAN GAVE PERMISSION FOR TWO NURSES TO [facility]CE .
== END 2021-08-15 17:20 | disposition hospice, inpatient (51) | DRG 177 ==
LOC: ER 15:04 → 3W 19:24 → EROBS 19:24 → 3W 08-08 10:44
PROVIDERS: Emergency Medicine; Nurse Practitioner Family; ADMIT Hospitalist; ATTEND Hospitalist
DX: U07.1 COVID-19 (principal); R65.11 Systemic inflammatory response syndrome (SIRS) of non-infectious origin with acute organ dysfunction; G93.41 Metabolic encephalopathy; N17.9 Acute kidney failure, unspecified; D61.818 Other pancytopenia; I25.10 Atherosclerotic heart disease of native coronary artery without angina pectoris; F41.9 Anxiety disorder, unspecified; F32.9 Major depressive disorder, single episode, unspecified; E86.0 Dehydration; F03.90 Unspecified dementia, unspecified severity, without behavioral disturbance, psychotic disturbance, mood disturbance, and anxiety; R53.81 Other malaise; N18.30 Chronic kidney disease, stage 3 unspecified; D64.9 Anemia, unspecified; I12.9 Hypertensive chronic kidney disease with stage 1 through stage 4 chronic kidney disease, or unspecified chronic kidney disease; Z51.5 Encounter for palliative care; Z66 Do not resuscitate; Z88.8 Allergy status to other drugs, medicaments and biological substances
CPT/HCPCS: 10080

== ENCOUNTER 2021-08-15 19:02 | Inpatient (IN) | payer OTHER ==
[~2021-08-15 19:02] MED LIST changes: +HALDOL5 MG/1 ML SUBLING; +LORAZEPAM 22 MG/1 ML IV PUSH; +LORAZEPAM I2 MG/1 ML PO; +MORPHINE S20 MG/5 ML PO; +MORPHINE SU4 MG/1 M1 IV PUSH; +ONDANSETRON4 MG/2 M1 IV PUSH; +Transderm-Scop 1MG/7 TRANSDERM
[2021-08-15 20:30] VITALS: BP 177/77
[2021-08-16 08:28] VITALS: BP 149/72
--- NOTE | 2021-08-16 12:21 | NUR ---
[facility]OS[facility] INITIAL ASSESSMENT: SW reviewed chart and spoke with nursing and attending physician. Pt was admitted to [facility]osp[facility] yesterday with [facility]. Pt remains in Enhanced Isolation due to COVID. Pt is on 2L of O2 for comfort. Pt has been refusing to eat/drink. Pt's family is being kept updated by nursing and hospice staff. SW is following and is available to assist as needed.
[2021-08-16 20:02] VITALS: BP 91/53
--- NOTE | 2021-08-17 04:21 | NUR ---
Patient comfortable at this time, palliative care. Cpntinuing with comfort care.
[2021-08-17 07:31] VITALS: BP 97/62
--- NOTE | 2021-08-17 13:45 | NUR ---
YUVAL reviewed chart and spoke with nursing and attending physician. Pt remains on comfort care measures on GIP hospice status. Pt febrile and on continuous O2 for comfort. Nursing to discuss with infection control when pt can come out of Enhanced Isolation. Family would be able to visit once pt is transferred off 3W. YUVAL updated [employer] liaison officer. YUVAL is following to assist as needed with discharge planning.
--- NOTE | 2021-08-17 19:34 | NUR ---
PATIENT ON COMFORT CARE. 2L/NV 02. MORPHONE AND ATIVAN GIVEN. PROGRESSING TOWARDS POC GOALS.
[2021-08-17 20:32] VITALS: BP 50/31
== END 2021-08-17 23:00 | DRG 884 ==
LOC: 3W 19:02
PROVIDERS: ADMIT Internal Medicine; ATTEND Internal Medicine
DX: F03.90 Unspecified dementia, unspecified severity, without behavioral disturbance, psychotic disturbance, mood disturbance, and anxiety (principal); U07.1 COVID-19; N18.30 Chronic kidney disease, stage 3 unspecified; I10 Essential (primary) hypertension; D64.9 Anemia, unspecified; Z66 Do not resuscitate; I25.10 Atherosclerotic heart disease of native coronary artery without angina pectoris; F32.9 Major depressive disorder, single episode, unspecified; F41.9 Anxiety disorder, unspecified; Z96.651 Presence of right artificial knee joint; Z51.5 Encounter for palliative care; Z91.81 History of falling; Z86.16 Personal history of COVID-19; Z88.4 Allergy status to anesthetic agent; Z88.8 Allergy status to other drugs, medicaments and biological substances; Z91.048 Other nonmedicinal substance allergy status; Z79.899 Other long term (current) drug therapy; Z85.820 Personal history of malignant melanoma of skin; Z96.82 Presence of neurostimulator
CPT/HCPCS: 10779